=== PATIENT | female | born 1945 | race Asian ===

== ENCOUNTER 2018-08-07 07:30 | Emergency (ER) | payer MEDICARE ==
[~2018-08-07] VITALS: Ht 160 cm; Wt 72.6 kg
[~2018-08-07 07:30] MED LIST: ASPIR 8181 MG ORAL; DOK250 M1 PO; GLIPIZIDE5 MG ORAL; LITHIUM CARBON300 MG ORAL; METFORMIN HCL1000 M1 ORAL; METOPROLOL TART25 MG ORAL; RISPERDAL2 MG ORAL; TAMIFLU75 MG ORAL; ZOCOR20 M1 ORAL
[2018-08-07] MEDS ORDERED: QUETIAPINE FUM400 MG ORAL (07:36)
[2018-08-07] MEDS ORDERED: ABILIFY MAINTE400 M1 IM (07:36)
[2018-08-07] MEDS ORDERED: BENZTROPINE ME0.5 MG PO (07:36)
[2018-08-07] MEDS ORDERED: SEROQUEL XR150 MG ORAL (07:36)
[2018-08-07] MEDS ORDERED: LITHIUM CARBON300 MG ORAL ×2 (07:36→08:28)
[2018-08-07 07:39] VITALS: BP 137/72
[2018-08-07] MEDS ORDERED: Tranexamic Acid(Epistaxis Use) TOPIC ONE (07:45)
[2018-08-07] MEDS ORDERED: Lidocaine 1% 10mg/ml/Epi 0.005mg/ml 30ml vial INJ ONE (07:45)
--- NOTE | 2018-08-07 07:53 | Emergency Room Report ---
History of Present Illness General Chief Complaint: Nosebleed Source: Patient Present Illness HPI Patient presents with a nosebleed. She states is from both sides however started on the left-hand side first. Paramedics tried local pressure for 10 minutes but were unsuccessful. The bleed. The patient is receiving chemotherapy for breast cancer. She also receives radiation therapy. She's never had this before. Blood pressure was not extremely high in the field. The patient denies any pain or fever. Not excessive amount of bleeding according to paramedics (but not quantitated). H/O bipolar disorder, stable on meds Allergies: Coded Allergies: PENICILLINS (Verified Allergy, Unknown, 08/07/18) Patient History Past Medical History: see triage record, DM Past Surgical History: other - masectomies Social History Narrative from Board and Care Reviewed Nursing Documentation: PMH: Agreed; PSxH: Agreed Nursing Documentation-PMH Hx Cancer: Yes - bilateral (on daily radiation therapy) Review of Systems All Other Systems: negative except mentioned in HPI Physical Exam Vital Signs Date Time Temp Pulse Resp B/P (MAP) Pulse Ox O2 Delivery O2 Flow Rate FiO2 08/07/18 07:24 98.2 118 16 137/81 98 Room Air Sp02 EP Interpretation: reviewed, normal General Appearance: no apparent distress, alert, GCS 15, Chronically Ill Head: normocephalic Eyes: bilateral eye PERRL, bilateral eye conjunctivae pale ENT: moist mucus membranes, other - bleeding from L side of nose Neck: supple Respiratory: lungs clear, normal breath sounds, other - masectomies Cardiovascular #1: regular rate, rhythm Cardiovascular #2: 2+ radial (R) Gastrointestinal: normal inspection, normal bowel sounds, non tender, no mass, non-distended, overweight Musculoskeletal: back normal, gait/station normal, normal range of motion Neurologic: alert, oriented x3, other - resting tremor, grossly normal Psychiatric: mood/affect normal Skin: warm/dry, pallor, other - alopecia Procedures Additional Procedure Procedure Narrative Anterior epistaxis control. Pack with lido epi. Lesion seen. Septum L. Cauterized [id number] Medical Decision Making Diagnostic Impression: Primary Impression: Epistaxis Additional Impression: Breast cancer Qualified Codes: C50.919 - Malignant neoplasm of unspecified site of unspecified female breast ER Course Patient on chemotherapy presents with nosebleeds. Differential includes the anterior lesion, from cytopenia, coagulopathy, anemia amongst others. It is disconcerting that she is tachycardic at this time. Evaluation will be with EKG , chest x-ray and labs. The patient will be packed with lidocaine with epinephrine. Depending on what seen after this child's eczema casted will probably be used. EKG sinus tachycardia 102 otherwise normal EKG. CBC, CMP and coags normal. After initial packing, septal lesion. Silver nitrate cauterized lesion. Patient improved and no further bleeding. Patient stable for outpatient observation and treatment. Laboratory Tests Test 08/07/18 08:10 White Blood Count 7.0 K/UL (4.8-10.8) Red Blood Count 3.99 M/UL (4.20-5.40) L Hemoglobin 11.9 G/DL (12.0-16.0) L Hematocrit 35.6 % (37.0-47.0) L Mean Corpuscular Volume 89 FL (80-99) Mean Corpuscular Hemoglobin 29.8 PG (27.0-31.0) Mean Corpuscular Hemoglobin Concent 33.5 G/DL (32.0-36.0) Red Cell Distribution Width 13.7 % (11.6-14.8) Platelet Count 199 K/UL (150-450) Mean Platelet Volume 5.8 FL (6.5-10.1) L Neutrophils (%) (Auto) 83.4 % (45.0-75.0) H Lymphocytes (%) (Auto) 8.1 % (20.0-45.0) L Monocytes (%) (Auto) 4.9 % (1.0-10.0) Eosinophils (%) (Auto) 3.1 % (0.0-3.0) H Basophils (%) (Auto) 0.6 % (0.0-2.0) Prothrombin Time 10.2 SEC (9.30-11.50) Prothrombin Time INR 1.0 (0.9-1.1) PTT 27 SEC (23-33) Sodium Level 139 MMOL/L (136-145) Potassium Level 3.9 MMOL/L (3.5-5.1) Chloride Level 106 MMOL/L (98-107) Carbon Dioxide Level 21 MMOL/L (21-32) Anion Gap 12 mmol/L (5-15) Blood Urea Nitrogen 12 mg/dL (7-18) Creatinine 0.9 MG/DL (0.55-1.30) Estimate Glomerular Filtration Rate mL/min (>60) Glucose Level 228 MG/DL (74-106) H Calcium Level 9.2 MG/DL (8.5-10.1) Total Bilirubin 0.3 MG/DL (0.2-1.0) Aspartate Amino Transferase (AST) 14 U/L (15-37) L Alanine Aminotransferase (ALT) 18 U/L (12-78) Alkaline Phosphatase 78 U/L (46-116) Total Creatine Kinase 59 U/L (26-308) Troponin I 0.007 ng/mL (0.000-0.056) Pro-B-Type Natriuretic Peptide 34 pg/mL (0-125) Total Protein 7.0 G/DL (6.4-8.2) Albumin 3.6 G/DL (3.4-5.0) Globulin 3.4 g/dL Albumin/Globulin Ratio 1.1 (1.0-2.7) EKG Diagnostic Results Rate: tachycardiac Rhythm: NSR ST Segments: no acute changes Rhythm Strip Diag. Results EP Interpretation: yes Rhythm: no PVC's, no ectopy, other - Sinus tachycardia Last Vital Signs Date Time Temp Pulse Resp B/P (MAP) Pulse Ox O2 Delivery O2 Flow Rate FiO2 08/07/18 10:38 98.2 100 17 124/71 97 Room Air Status: improved Disposition: HOME, SELF-CARE Condition: Improved Scripts Bacitracin (Bacitracin) 28.4 Gm Oint...g. 1 APPLIC TOPIC BID, #10 GM Apply gently into nare on Left Prov: Chin Caballero MD 08/07/18 Chin Caballero MD Aug 07, 2018 07:53
[2018-08-07] MEDS ORDERED: Sodium Chloride 500ML 500 ML IV ONE (08:00)
[2018-08-07] MEDS ORDERED: METOPROLOL TART25 MG ORAL (08:28)
[2018-08-07] MEDS ORDERED: RISPERDAL2 MG ORAL (08:28)
[2018-08-07] MEDS ORDERED: ACTOS30 MG ORAL (08:28)
[2018-08-07] MEDS ORDERED: METFORMIN HCL1000 M1 ORAL (08:28)
[2018-08-07] MEDS ORDERED: GLIPIZIDE5 MG ORAL (08:28)
[2018-08-07] MEDS ORDERED: SIMVASTATIN20 MG ORAL (08:28)
[2018-08-07] MEDS ORDERED: Silver Nitrate Stick TOPIC ONE (08:30)
[2018-08-07 08:40] LABS: BASOPHILS % (AUTO) 0.6 % (0.0-2.0); EOSINOPHILS % (AUTO) 3.1 % (0.0-3.0); HEMATOCRIT 35.6 % (37.0-47.0); HEMOGLOBIN 11.9 G/DL (12.0-16.0); LYMPHOCYTES % (AUTO) 8.1 % (20.0-45.0); MEAN CORPUSCULAR VOLUME 89 FL (80-99); MONOCYTES % (AUTO) 4.9 % (1.0-10.0); NEUTROPHILS % (AUTO) 83.4 % (45.0-75.0); PLATELET COUNT 199 K/UL (150-450); RED BLOOD COUNT 3.99 M/UL (4.20-5.40); RED CELL DISTRIBUTION WIDTH 13.7 % (11.6-14.8)
[2018-08-07 08:42] LABS: ANION GAP 12 mmol/L (5-15); BLOOD UREA NITROGEN 12 mg/dL (7-18); CALCIUM 9.2 MG/DL (8.5-10.1); CARBON DIOXIDE 21 MMOL/L (21-32); CHLORIDE 106 MMOL/L (98-107); CREATININE 0.9 MG/DL (0.55-1.30); POTASSIUM 3.9 MMOL/L (3.5-5.1); SODIUM 139 MMOL/L (136-145)
[2018-08-07 08:52] LABS: ALANINE AMINOTRANSFERASE 18 U/L (12-78); ALBUMIN 3.6 G/DL (3.4-5.0); ALBUMIN/GLOBULIN RATIO 1.1 (1.0-2.7); ALKALINE PHOSPHATASE 78 U/L (46-116); ASPARTATE AMINO TRANSFERASE 14 U/L (15-37); BILIRUBIN,TOTAL 0.3 MG/DL (0.2-1.0); CREATINE KINASE 59 U/L (26-308)
[2018-08-07] MEDS ORDERED: BACITRACIN15 GM TOPIC (09:44)
--- NOTE | 2018-08-07 10:36 | Diagnostic Imaging Report ---
Indication: Chest pain Technique: One view of the chest Comparison: none Findings: The heart is enlarged. The lungs and pleural spaces are clear. Surgical clips are seen in the left axilla Impression: Cardiomegaly. No acute process
[2018-08-07 10:38] VITALS: BP 124/71
== END 2018-08-07 10:38 | disposition home or self-care (01) ==
LOC: EDBD 07:30 → MERGE 08:15 → EMR 08:15
DX: R04.0 Epistaxis (principal); C50.912 Malignant neoplasm of unspecified site of left female breast; C50.911 Malignant neoplasm of unspecified site of right female breast; Z90.13 Acquired absence of bilateral breasts and nipples; Z79.899 Other long term (current) drug therapy; Z88.0 Allergy status to penicillin; Z92.3 Personal history of irradiation
CPT/HCPCS: 30901; 36415; 71045; 80053; 82550; 83880; 84484; 85025; 85610; 85730; 99284; J7040